=== PATIENT | male | born 1930 | race Two or more races ===

== ENCOUNTER 2017-12-07 17:16 | Emergency (ER) | payer MEDICARE, OTHER | END 2017-12-07 19:08 | disposition home or self-care (01) | LOC: ER 17:16 | DX: S70.02XA Contusion of left hip, initial encounter (principal); S80.02XA Contusion of left knee, initial encounter; S60.222A Contusion of left hand, initial encounter; E11.9 Type 2 diabetes mellitus without complications; I10 Essential (primary) hypertension; Z88.0 Allergy status to penicillin; Z91.048 Other nonmedicinal substance allergy status; W18.39XA Other fall on same level, initial encounter; Y93.89 Activity, other specified; Y92.89 Other specified places as the place of occurrence of the external cause; Y99.8 Other external cause status | CPT/HCPCS: 73130; 73502; 73562; 99284 ==